=== PATIENT | male | born 1950 | race Caucasian/White ===

== ENCOUNTER 2019-02-02 00:38 | Outpatient (CLI) | payer OTHER, SELFPAY ==
--- NOTE | 2019-02-02 | PFT_ITS ---
PULMONARY FUNCTION TEST REPORT Patient - John Jerry DATE OF SERVICE February 02, 2019 REQUESTING PROVIDER Lisha Buckley M.D. INTERPRETATION OF STUDY Spirometry shows mild obstructive airways disease with no significant bronchodilator response. IMPRESSION Mild obstructive airways disease with no significant bronchodilator response. Normal pulmonary function study. Clinical correlation recommended. Martha Snyder M.D. EDIL/ T- 02/13/2019 METHACHOLINE CHALLENGE TEST DATE OF SERVICE February 02, 2019 Good patient effort after baseline spirometry showing mild obstructive airways disease, Methacholine challenge testing was carried out up to a methacholine concentration of 16 mg/ml at the 8 mg/ml dose, there was a 19% drop in FEV1 and at the highest concentration of 16 mg/ml there was a 31% drop FEV1. IMPRESSION Weakly positive Methacholine challenge test. Clinical correlation recommended. Martha Snyder M.D. EDIL/marisol T 02/13/2019
[2019-02-02] MEDS: Inhaler, Assist Device 1 EACH MC (18:34)
[2019-02-02] MEDS: Methacholine 100 MG VIAL IH (18:34)
[2019-02-02] MEDS: Albuterol HFA 18 GM 200 PUFF INH IH (18:34)
== END 2019-02-02 00:58 ==
PROVIDERS: PCP Internal Medicine; Visit Provider Internal Medicine Pulmonary Disease
DX: R06.02 Shortness of breath (principal); R06.09 Other forms of dyspnea
CPT/HCPCS: 94060; 95070; J7674